=== PATIENT | female | born 1940 | race Caucasian/White ===

== ENCOUNTER → 2018-05-24 | Outpatient (CLI) | payer MEDICARE, BC ==
[~2018-05-24] MED LIST: ASPI81CH PO; HYDMOR2 PO; HYDR1TAB94; HYDR1TAB94 PO; Hydrocodone-Ap1 EA23; LOSA25; METTREX2.5; METTREX2.5 PO
== END | disposition home or self-care (01) ==
LOC: LAB 10:00 → LAB SHORT 10:00
DX: Z00.00 Encounter for general adult medical examination without abnormal findings (principal); E78.5 Hyperlipidemia, unspecified; L40.50 Arthropathic psoriasis, unspecified; M81.0 Age-related osteoporosis without current pathological fracture; D51.0 Vitamin B12 deficiency anemia due to intrinsic factor deficiency; I10 Essential (primary) hypertension
CPT/HCPCS: 82043

== ENCOUNTER → 2020-03-26 | Outpatient (CLI) | payer MEDICARE, BC ==
[2020-03-26 14:05] LABS: Protein, Urine Quantitative 5.7 mg/dL (0.0-11.9)
[2020-03-26 14:13] LABS: Microalbumin, Urine Quant. <5.000 mg/L (0.000-20.000)
== END ==
LOC: LAB SHORT 07:50
PROVIDERS: Internal Medicine Nephrology
DX: N18.30 Chronic kidney disease, stage 3 unspecified (principal); D63.1 Anemia in chronic kidney disease; D50.9 Iron deficiency anemia, unspecified; R73.09 Other abnormal glucose; R76.9 Abnormal immunological finding in serum, unspecified; R94.5 Abnormal results of liver function studies; R94.6 Abnormal results of thyroid function studies; D52.8 Other folate deficiency anemias
CPT/HCPCS: 81050; 82043; 82570; 84156

== ENCOUNTER → 2021-02-25 | Outpatient (CLI) | payer MEDICARE, BC ==
[~2021-02-25] MED LIST changes: -LOSA25; +LOSA25 PO; -METTREX2.5
[2021-02-25 12:18] LABS: BASOPHILS ABSOLUTE AUTO 0.01 K/mm3 (0.00-0.23); BASOPHILS PERCENT AUTO 0 % (0-2); EOSINOPHILS PERCENT AUTO 0 % (0-6); Hematocrit 36.9 % (33.0-51.0); Hemoglobin 12.4 g/dL (11.5-16.0); IMMATURE GRAN ABSOLUTE AUTO 0.03 K/mm3 (0.00-0.10); IMMATURE GRAN PERCENT AUTO 1 % (0-1); LYMPHOCYTES ABSOLUTE AUTO 1.01 K/mm3 (0.84-5.20); LYMPHOCYTES PERCENT AUTO 25 % (21-46); MONOCYTES ABSOLUTE AUTO 0.48 K/mm3 (0.16-1.47); MONOCYTES PERCENT AUTO 12 % (4-13); Mean Corpuscular HGB 33.6 pg (26.0-34.0); Mean Corpuscular HGB Conc 33.6 g/dL (31.5-36.5); Mean Corpuscular Volume 100 fL (80-100); NEUTROPHILS ABSOLUTE AUTO 2.44 K/mm3 (1.96-9.15); NEUTROPHILS PERCENT AUTO 61 % (41-73); Platelet Count 138 K/mm3 (150-400); RDW Coefficient Variation 12.9 % (11.7-14.2); Red Blood Cell Count 3.69 M/mm3 (3.80-5.20); White Blood Cell Count 3.97 K/mm3 (4.00-11.30)
[2021-02-25 12:55] LABS: Albumin/Globulin Ratio 0.9 (0.8-1.8); Bilirubin, Total 0.7 mg/dL (0.1-1.0); Bun/Creatinine Ratio 25.4 (12.0-20.0); C-REACTIVE PROTEIN, EXT RANGE 1.28 mg/dL (0.000-0.300); Calcium, Blood 8.6 mg/dL (8.5-10.1); Creatinine, Blood 1.22 mg/dL (0.40-1.00); Globulin, Blood 3.2 g/dL (2.2-4.0); Potassium, Blood 4.1 mmol/L (3.5-5.5); Total Protein, Blood 6.2 g/dL (6.4-8.2)
== END | disposition home or self-care (01) ==
LOC: LAB 11:35 → LAB SHORT 11:35
PROVIDERS: Physician Assistant
DX: R53.83 Other fatigue (principal)
CPT/HCPCS: 80053; 82550; 85025; 85651; 86140; 87077; 87086; 87186

== ENCOUNTER 2021-03-05 14:19 | Inpatient (IN) | payer MEDICARE, BC ==
[~2021-03-05] VITALS: Ht 162.6 cm; Wt 79.6 kg
[2021-03-05 15:06] LABS: BASOPHILS PERCENT AUTO 0 % (0-2); EOSINOPHILS ABSOLUTE AUTO 0.01 K/mm3 (0.00-0.68); EOSINOPHILS PERCENT AUTO 1 % (0-6); Hematocrit 29.9 % (33.0-51.0); Hemoglobin 9.9 g/dL (11.5-16.0); IMMATURE GRAN ABSOLUTE AUTO 0.01 K/mm3 (0.00-0.10); IMMATURE GRAN PERCENT AUTO 1 % (0-1); LYMPHOCYTES ABSOLUTE AUTO 0.35 K/mm3 (0.84-5.20); LYMPHOCYTES PERCENT AUTO 19 % (21-46); MONOCYTES ABSOLUTE AUTO 0.07 K/mm3 (0.16-1.47); MONOCYTES PERCENT AUTO 4 % (4-13); Mean Corpuscular HGB 33.7 pg (26.0-34.0); Mean Corpuscular HGB Conc 33.1 g/dL (31.5-36.5); Mean Corpuscular Volume 102 fL (80-100); NEUTROPHILS ABSOLUTE AUTO 1.37 K/mm3 (1.96-9.15); NEUTROPHILS PERCENT AUTO 76 % (41-73); RDW Coefficient Variation 13.2 % (11.7-14.2); RDW Standard Deviation 48.5 fL (35.1-46.3); Red Blood Cell Count 2.94 M/mm3 (3.80-5.20); White Blood Cell Count 1.81 K/mm3 (4.00-11.30)
[2021-03-05] MEDS ORDERED: FUROSEMIDE20 MG PO (15:13)
[2021-03-05] MEDS ORDERED: LOSARTAN POTASS25 M2 PO (15:13)
[2021-03-05] MEDS ORDERED: POTA8 PO (15:14)
[2021-03-05] MEDS ORDERED: CEFDINIR300 M4 PO (15:15)
[2021-03-05 15:18] LABS: Platelet Count 46 K/mm3 (150-400)
[2021-03-05 15:19] LABS: Source, Urine Catheter
[2021-03-05 15:20] LABS: Alanine Aminotransfer (ALT/SGP 124 U/L (12-78); Albumin, Blood 2.4 g/dL (3.4-5.0); Albumin/Globulin Ratio 0.9 (0.8-1.8); Alk Phos 50 U/L (50-136); Anion Gap 7 mmol/L (6-16); Aspartate Aminotrans (AST/SGOT 119 U/L (12-37); Bilirubin, Total 0.6 mg/dL (0.1-1.0); Blood Urea Nitrogen 17 mg/dL (8-24); Bun/Creatinine Ratio 13.6 (12.0-20.0); CO2, Blood 26 mmol/L (21-32); Calcium, Blood 7.2 mg/dL (8.5-10.1); Chloride, Blood 104 mmol/L (98-108); Creatinine, Blood 1.25 mg/dL (0.40-1.00); Ethanol (Alcohol), Blood, Med <3 mg/dL; Globulin, Blood 2.6 g/dL (2.2-4.0); Glomerular Filtration Rate 41 (60-); Glucose, Blood 102 mg/dL (70-99); Potassium, Blood 3.7 mmol/L (3.5-5.5); Sodium, Blood 137 mmol/L (136-145); Troponin I 0.035 ng/mL (0.000-0.040)
[2021-03-05 15:29] LABS: Appearance, Urine Clear (Clear); Bilirubin, Urine Neg (Neg); Blood, Urine 1+ (Neg); Color, Urine Yellow (P-Yellow); Glucose Qualitative, Urine Neg (Neg); Ketones, Urine Neg (Neg); Leukocyte Esterase, Urine Neg (Neg); Nitrite, Urine Neg (Neg); Protein, Urine 1+ (Neg); Specific Gravity, Urine 1.015 (1.003-1.022); Urobilinogen, Urine NORM (Normal)
[2021-03-05 15:46] LABS: U Amphetamine Screen Not Detected; U Barbituate Screen Not Detected; U Benzodiazapine Screen Not Detected; U Buprenorphine Screen Not Detected; U Cannabinoids Screen Not Detected; U Cocaine Screen Not Detected; U Methadone Screen Not Detected; U Methamphetamine Screen Not Detected; U Opiates Screen Not Detected; U Oxycodone Screen Not Detected; U Phencyclidine Screen Not Detected; U Propoxyphene Screen Not Detected
[2021-03-05 15:51] LABS: Bacteria Rare /hpf; Red Blood Cells, Urine 0-2 /hpf (0-2); Squamous Epithelial Cells Rare /hpf (Few); White Blood Cells, Urine 0-2 /hpf (0-5)
[2021-03-05 15:53] LABS: Influenza A, PCR NEGATIVE (NEGATIVE); Influenza B, PCR NEGATIVE (NEGATIVE); Resp Syncytial Virus, PCR NEGATIVE (NEGATIVE); SARS-Cov-2 (COVID-19) PCR, MMC POSITIVE (NEGATIVE)
--- NOTE | 2021-03-06 03:35 | NUR ---
ADMISSION: Pt's daughter was checking in and found the pt. with AMS that is not her baseline. The pt. was here 1 week ago d/t being found down at home. She is Covid + and has been febrile, but her temp has gone down since up on the floor. She has a quinonez with a temp probe and is resting comfortably in bed on RA. Her hx includes liver cancer w/ mets and it seems that her DNR status is possibly being changed to comfort care, but the order is not in yet. We will continue to monitor the remainder of the shift.
[2021-03-06 04:52] LABS: Hematocrit 28.6 % (33.0-51.0); Hemoglobin 9.6 g/dL (11.5-16.0); Mean Corpuscular HGB 34.2 pg (26.0-34.0); Mean Corpuscular HGB Conc 33.6 g/dL (31.5-36.5); Mean Corpuscular Volume 102 fL (80-100); Mean Platelet Volume 11.1 fL (9.1-12.4); RDW Coefficient Variation 13.2 % (11.7-14.2); RDW Standard Deviation 49.4 fL (35.1-46.3); Red Blood Cell Count 2.81 M/mm3 (3.80-5.20); White Blood Cell Count 1.78 K/mm3 (4.00-11.30)
[2021-03-06 05:21] LABS: Platelet Count 38 K/mm3 (150-400)
[2021-03-06 05:23] LABS: Albumin/Globulin Ratio 0.8 (0.8-1.8); Bilirubin, Total 0.5 mg/dL (0.1-1.0); Bun/Creatinine Ratio 13.3 (12.0-20.0); Calcium, Blood 7.1 mg/dL (8.5-10.1); Creatinine, Blood 1.2 mg/dL (0.40-1.00); Globulin, Blood 2.6 g/dL (2.2-4.0); Potassium, Blood 3.7 mmol/L (3.5-5.5); Total Protein, Blood 4.6 g/dL (6.4-8.2)
[2021-03-06 05:55] LABS: BASOPHILS PERCENT MAN 0 % (0-2); EOSINOPHILS PERCENT MAN 0 % (0-6); LYMPHOCYTES ABSOLUTE MAN 0.37 K/mm3 (0.84-5.20); LYMPHOCYTES PERCENT MAN 21 % (21-46); MONOCYTES ABSOLUTE MAN 0.07 K/mm3 (0.16-1.47); MONOCYTES PERCENT MAN 4 % (4-13); NEUTROPHILS ABSOLUTE MAN 1.33 K/mm3 (1.96-9.15); SEG NEUTROPHILS PERCENT MAN 75 % (41-73); TOTAL CELLS COUNTED 100
--- NOTE | 2021-03-06 06:37 | NUR ---
PT IS A/OX2-3. HX: LIVER CA W/ METS. HERE RECENTLY FOR WEAKNESS/GLF. CURRENTLY A DNR BUT WILL BE SHIFTING TO COMFORT CARE. SHE HAS BEEN FEBRILE SINCE HER ARRIVAL TO THE HOSPITAL. HER TEMP DID GO DOWN UP ON THE FLOOR, BUT SHE NOW HAS AN ELEVATED TEMP. SHE WAS MEDICATED WITH TYLENOL AND WE'LL DO A TEMP RECHECK BEFORE SHIFT CHANGE.
--- NOTE | 2021-03-06 17:31 | NUR ---
SHIFT SUMMARY PT IS AOX4 AND PLEASANT. PT MEDICATED X1 FOR PAIN. PT DENIES N/V, SOB AND REMAINS AFEBRILE THIS SHIFT. PT APPETITE IS POOR TO MODERATE, NEEDING FEEDING ASSISTANCE AT TIMES. PT UP WITH ONE ASSIST TO BCC, BUT WEAK. PT HAD FAMILY IN TO VISIT TODAY. PLAN IS FOR PT/OT EVALUATION AND REMDESIVIR TREATMENT FOR COVID. PT IS IN BED, CALL LIGHT IN REACH, LOW POSITION.
--- NOTE | 2021-03-07 04:54 | NUR ---
PT IS NOW A/OX4. HER AMS HAS RESOLVED. SHE IS NO LONGER FEBRILE. SHE IS TOLERATING SOLID FOOD AND IS DRINKING FLUIDS WELL. SHE IS VERY WEAK AND NEEDS 1-2 PA/FWW TO BSC WITH COMMANDS. COVID ISOLATION REMAINS IN PLACE.
[2021-03-07 05:08] LABS: Hematocrit 29.6 % (33.0-51.0); Hemoglobin 9.9 g/dL (11.5-16.0); Mean Corpuscular HGB 33.8 pg (26.0-34.0); Mean Corpuscular HGB Conc 33.4 g/dL (31.5-36.5); Mean Corpuscular Volume 101 fL (80-100); Mean Platelet Volume 11.5 fL (9.1-12.4); RDW Coefficient Variation 13.2 % (11.7-14.2); RDW Standard Deviation 48.5 fL (35.1-46.3); Red Blood Cell Count 2.93 M/mm3 (3.80-5.20); White Blood Cell Count 1.46 K/mm3 (4.00-11.30)
[2021-03-07 05:20] LABS: Platelet Count 27 K/mm3 (150-400)
[2021-03-07 05:33] LABS: Bun/Creatinine Ratio 22.1 (12.0-20.0); Calcium, Blood 7.2 mg/dL (8.5-10.1); Creatinine, Blood 0.91 mg/dL (0.40-1.00); Potassium, Blood 3.8 mmol/L (3.5-5.5)
[2021-03-07 05:59] LABS: BAND PERCENT MAN 8 % (0-8); BASOPHILS PERCENT MAN 0 % (0-2); EOSINOPHILS PERCENT MAN 0 % (0-6); LYMPHOCYTES ABSOLUTE MAN 0.23 K/mm3 (0.84-5.20); LYMPHOCYTES PERCENT MAN 16 % (21-46); MONOCYTES ABSOLUTE MAN 0.04 K/mm3 (0.16-1.47); MONOCYTES PERCENT MAN 3 % (4-13); MYELOCYTE ABSOLUTE MAN 0.01 K/mm3 (0.00-0.00); MYELOCYTE PERCENT MAN 1 % (0-0); NEUTROPHILS ABSOLUTE MAN 1.16 K/mm3 (1.96-9.15); SEG NEUTROPHILS PERCENT MAN 72 % (41-73); TOTAL CELLS COUNTED 100
--- NOTE | 2021-03-07 18:38 | NUR ---
SHIFT SUMMARY PATIENT DENIES PAIN, NAUSEA, AND SHORTNESS OF BREATH. PATIENT IS ON ROOM AIR. PATIENT WORKED WITH PT TODAY. PATIENT IS A SBA TO THE BATHROOM. CÁRDENAS IS PATENT AND DRAINING TO GRAVITY. PT IS RECOMMENDING SNF, HOWEVER PATIENT DOES NOT WANT THAT. PATIENT DAUGHTER VISITED IN AFTERNOON. PATIENT HAS POOR PO INTAKE. PATIENT REPORTS LACK OF APPETITE. PATIENT IS PLEASANT AND COOPERATIVE WITH CARE.
[2021-03-08 05:17] LABS: BASOPHILS PERCENT AUTO 0 % (0-2); EOSINOPHILS PERCENT AUTO 0 % (0-6); Hematocrit 30.7 % (33.0-51.0); Hemoglobin 10.3 g/dL (11.5-16.0); Mean Corpuscular HGB 33.4 pg (26.0-34.0); Mean Corpuscular HGB Conc 33.6 g/dL (31.5-36.5); Mean Corpuscular Volume 100 fL (80-100); RDW Coefficient Variation 13.3 % (11.7-14.2); RDW Standard Deviation 48.4 fL (35.1-46.3); Red Blood Cell Count 3.08 M/mm3 (3.80-5.20); White Blood Cell Count 2.66 K/mm3 (4.00-11.30)
--- NOTE | 2021-03-08 05:25 | NUR ---
SHIFT SUMMARY 80 YR f ADMITTED ON 03/05/21 FOR SEPSIS AND IS NOW COVID POSITIVE AND RA . SHE IS A DNR. PT IS COMPLAINING OF PAIN AT A LEVEL OF 8-9 IN HER HIPS AFTER A GROUND LEVEL FALL 12 DAYS AGO. tYLENOL WAS VALLES TWICE DURING SHIFT PER EMAR. STAND BY ASSIST TO BEDSIDE COMMODE OR BATHROOM, AND USES A WALKER. SHE PLANS TO MOVE IN WITH HER GRANDDAUGHTER UPON DISCHARGE.
[2021-03-08 05:43] LABS: IMMATURE GRAN ABSOLUTE AUTO 0.01 K/mm3 (0.00-0.10); IMMATURE GRAN PERCENT AUTO 0 % (0-1); LYMPHOCYTES ABSOLUTE AUTO 0.43 K/mm3 (0.84-5.20); LYMPHOCYTES PERCENT AUTO 16 % (21-46); MONOCYTES ABSOLUTE AUTO 0.03 K/mm3 (0.16-1.47); MONOCYTES PERCENT AUTO 1 % (4-13); NEUTROPHILS ABSOLUTE AUTO 2.19 K/mm3 (1.96-9.15); NEUTROPHILS PERCENT AUTO 82 % (41-73)
[2021-03-08 05:44] LABS: Platelet Count 36 K/mm3 (150-400)
[2021-03-08 05:55] LABS: Bun/Creatinine Ratio 28.8 (12.0-20.0); Calcium, Blood 7.7 mg/dL (8.5-10.1); Creatinine, Blood 0.94 mg/dL (0.40-1.00); Potassium, Blood 4.2 mmol/L (3.5-5.5)
--- NOTE | 2021-03-08 19:15 | NUR ---
PT A/O. NO ACUTE CHANGES FOR SHIFT. PT WALKED WITH PT TODAY. NO ACUTE CHANGES. ALL MEDS GIVEN PER EMAR. PT IS GOING HOME WITH HOME HEALTH TOMORROW PER DR YARBROUGH
--- NOTE | 2021-03-09 04:05 | NUR ---
SHIFT SUMMARY ADMITTED FOR PNEUMONIA/SEPSIS. COVID+. DNR CODE. HOPEFUL FOR DC TODAY W/HH. SHE PLANS TO LIVE WITH HER DAUGHTER. REMDESIVIR IS SCHEDULED. PHYSICAL & OCCUPATIONAL THERAPIES ARE ASSISTING WITH THIS PT. SHE IS A 1 ASSIST W/FWW - BRP. NO NEW CONCERNS THIS SHIFT
[2021-03-09 05:39] LABS: BASOPHILS PERCENT AUTO 0 % (0-2); EOSINOPHILS PERCENT AUTO 0 % (0-6); Hematocrit 30.1 % (33.0-51.0); Hemoglobin 9.6 g/dL (11.5-16.0); Mean Corpuscular HGB Conc 31.9 g/dL (31.5-36.5); Mean Corpuscular Volume 103 fL (80-100); RDW Coefficient Variation 13.5 % (11.7-14.2); RDW Standard Deviation 50.1 fL (35.1-46.3); Red Blood Cell Count 2.91 M/mm3 (3.80-5.20); White Blood Cell Count 1.77 K/mm3 (4.00-11.30)
[2021-03-09 05:56] LABS: IMMATURE GRAN ABSOLUTE AUTO 0.01 K/mm3 (0.00-0.10); IMMATURE GRAN PERCENT AUTO 1 % (0-1); LYMPHOCYTES ABSOLUTE AUTO 0.27 K/mm3 (0.84-5.20); LYMPHOCYTES PERCENT AUTO 15 % (21-46); MONOCYTES ABSOLUTE AUTO 0.03 K/mm3 (0.16-1.47); MONOCYTES PERCENT AUTO 2 % (4-13); NEUTROPHILS ABSOLUTE AUTO 1.46 K/mm3 (1.96-9.15); NEUTROPHILS PERCENT AUTO 82 % (41-73); Platelet Count 40 K/mm3 (150-400)
[2021-03-09 06:30] LABS: Bun/Creatinine Ratio 31.5 (12.0-20.0); Calcium, Blood 7.8 mg/dL (8.5-10.1); Creatinine, Blood 0.95 mg/dL (0.40-1.00); Potassium, Blood 4.2 mmol/L (3.5-5.5)
[2021-03-09 06:57] LABS: BAND PERCENT MAN 2 % (0-8); BASOPHILS PERCENT MAN 0 % (0-2); EOSINOPHILS PERCENT MAN 0 % (0-6); LYMPHOCYTES PERCENT MAN 6 % (21-46); MONOCYTES PERCENT MAN 0 % (4-13); NEUTROPHILS ABSOLUTE MAN 1.66 K/mm3 (1.96-9.15); SEG NEUTROPHILS PERCENT MAN 92 % (41-73); TOTAL CELLS COUNTED 50
--- NOTE | 2021-03-09 14:34 | NUR ---
PATIENT RECEIVED LAST DOSE OF REMDESEVIR FOR SHIFT.VITALS STABLE.PT DENIES PAIN/DISCOMFORT.NO ACUTE CHANGES.NO SIGNS OF DISTRESS.PT AMBULATES WELL TO THE BATHROOM WITH STAFF ASSISTANCE AND WITH WALKER. ALL MEDS GIVEN PER EMAR.DAUGHTER AT BEDSIDE. PATIENT HAS BEEN DISCHARGED AROUND 1410.IV REMOVED.DISCHARGE INSTRUSTIONS PROVIDED. MED ORDER/PHARMACY REVIEWED.
--- NOTE | 2021-03-10 11:36 | NUR ---
Patient is a [facility] patient who was transferred to [facility] on 03/05/2021 due to sepsis. Patient is to discharged yesterday- 03/09/2021 with resumption of home health orders. Gathered supporting documentation for resumption (face sheet, discharge order, med list, and H&P) and faxed to [facility] for review. No further interventions required. Marry Sales Referral Liaison
== END 2021-03-09 14:14 | disposition home health service (06) | DRG 871 ==
LOC: ER 14:19 → MEDS 17:34
PROVIDERS: Emergency Medicine; Family Medicine; Student in an Organized Health Care Education/Training Program; ADMIT Internal Medicine
PROC: 3E0333Z Introduction of Anti-inflammatory into Peripheral Vein, Percutaneous Approach (ICD-10-PCS; principal; 2021-03-05)
PROC: XW033E5 Introduction of Remdesivir Anti-infective into Peripheral Vein, Percutaneous Approach, New Technology Group 5 (ICD-10-PCS; 2021-03-05)
PROC: 8E0ZXY6 Isolation (ICD-10-PCS; 2021-03-05)
DX: A41.89 Other specified sepsis (principal); U07.1 COVID-19; J12.82 Pneumonia due to coronavirus disease 2019; D61.810 Antineoplastic chemotherapy induced pancytopenia; G93.41 Metabolic encephalopathy; N18.30 Chronic kidney disease, stage 3 unspecified; Z66 Do not resuscitate; I12.9 Hypertensive chronic kidney disease with stage 1 through stage 4 chronic kidney disease, or unspecified chronic kidney disease; L40.50 Arthropathic psoriasis, unspecified; T45.1X5A Adverse effect of antineoplastic and immunosuppressive drugs, initial encounter; T38.0X5A Adverse effect of glucocorticoids and synthetic analogues, initial encounter; M16.0 Bilateral primary osteoarthritis of hip; M06.9 Rheumatoid arthritis, unspecified; Z90.49 Acquired absence of other specified parts of digestive tract; Z98.890 Other specified postprocedural states; Z98.1 Arthrodesis status; Z98.42 Cataract extraction status, left eye; Z98.41 Cataract extraction status, right eye; Z79.899 Other long term (current) drug therapy; Z91.81 History of falling
CPT/HCPCS: 0241U; 36415; 51702; 70450; 71045; 80048; 80053; 81001; 83605; 84484; 85025; 87040; 93005; 93010; 94762; 96374; 97110; 97116; 97116-CQ; 97162; 97166; 97530; 97530-CQ; 97535; 99285-25; A9270; G0480; J1650; J7030; J7050; J8610

== ENCOUNTER 2021-03-11 11:25 | Inpatient (IN) | payer MEDICARE, BC ==
[~2021-03-11] VITALS: Ht 162.6 cm; Wt 72.6 kg
[~2021-03-11 11:25] MED LIST changes: +CEFDINIR300 M4 PO; +FUROSEMIDE20 MG PO; +LOSARTAN POTASS25 M2 PO; +POTA8 PO
[2021-03-11 14:17] LABS: Source, Urine Catheter
[2021-03-11 14:23] LABS: BASOPHILS PERCENT AUTO 0 % (0-2); EOSINOPHILS ABSOLUTE AUTO 0.02 K/mm3 (0.00-0.68); EOSINOPHILS PERCENT AUTO 1 % (0-6); Hematocrit 30.3 % (33.0-51.0); Hemoglobin 9.8 g/dL (11.5-16.0); IMMATURE GRAN ABSOLUTE AUTO 0.01 K/mm3 (0.00-0.10); IMMATURE GRAN PERCENT AUTO 1 % (0-1); LYMPHOCYTES ABSOLUTE AUTO 0.39 K/mm3 (0.84-5.20); LYMPHOCYTES PERCENT AUTO 22 % (21-46); MONOCYTES PERCENT AUTO 11 % (4-13); Mean Corpuscular HGB 33.9 pg (26.0-34.0); Mean Corpuscular HGB Conc 32.3 g/dL (31.5-36.5); Mean Corpuscular Volume 105 fL (80-100); Mean Platelet Volume 11.4 fL (9.1-12.4); NEUTROPHILS ABSOLUTE AUTO 1.14 K/mm3 (1.96-9.15); NEUTROPHILS PERCENT AUTO 65 % (41-73); RDW Coefficient Variation 13.7 % (11.7-14.2); RDW Standard Deviation 51.8 fL (35.1-46.3); Red Blood Cell Count 2.89 M/mm3 (3.80-5.20); White Blood Cell Count 1.76 K/mm3 (4.00-11.30)
[2021-03-11 14:24] LABS: Appearance, Urine Hazy (Clear); Bilirubin, Urine Neg (Neg); Blood, Urine 2+ (Neg); Color, Urine Yellow (P-Yellow); Glucose Qualitative, Urine Neg (Neg); Ketones, Urine Neg (Neg); Leukocyte Esterase, Urine 2+ (Neg); Nitrite, Urine Pos (Neg); Protein, Urine 2+ (Neg); Urobilinogen, Urine NORM (Normal)
[2021-03-11 14:33] LABS: Platelet Count 42 K/mm3 (150-400)
[2021-03-11 14:41] LABS: Bacteria Many /hpf; Squamous Epithelial Cells Rare /hpf (Few); White Blood Cells, Urine 25-50 /hpf (0-5)
[2021-03-11 14:45] LABS: Albumin, Blood 1.9 g/dL (3.4-5.0); Albumin/Globulin Ratio 0.7 (0.8-1.8); Bilirubin, Total 1.2 mg/dL (0.1-1.0); Calcium, Blood 8.3 mg/dL (8.5-10.1); Globulin, Blood 2.7 g/dL (2.2-4.0); Potassium, Blood 4.3 mmol/L (3.5-5.5); Total Protein, Blood 4.6 g/dL (6.4-8.2)
[2021-03-12 05:38] LABS: BASOPHILS PERCENT AUTO 0 % (0-2); EOSINOPHILS ABSOLUTE AUTO 0.06 K/mm3 (0.00-0.68); EOSINOPHILS PERCENT AUTO 5 % (0-6); Hematocrit 29.8 % (33.0-51.0); Hemoglobin 9.5 g/dL (11.5-16.0); IMMATURE GRAN ABSOLUTE AUTO 0.01 K/mm3 (0.00-0.10); IMMATURE GRAN PERCENT AUTO 1 % (0-1); LYMPHOCYTES ABSOLUTE AUTO 0.34 K/mm3 (0.84-5.20); LYMPHOCYTES PERCENT AUTO 30 % (21-46); MONOCYTES ABSOLUTE AUTO 0.28 K/mm3 (0.16-1.47); MONOCYTES PERCENT AUTO 24 % (4-13); Mean Corpuscular HGB 33.9 pg (26.0-34.0); Mean Corpuscular HGB Conc 31.9 g/dL (31.5-36.5); Mean Corpuscular Volume 106 fL (80-100); Mean Platelet Volume 10.2 fL (9.1-12.4); NEUTROPHILS ABSOLUTE AUTO 0.46 K/mm3 (1.96-9.15); NEUTROPHILS PERCENT AUTO 40 % (41-73); RDW Standard Deviation 52.9 fL (35.1-46.3); White Blood Cell Count 1.15 K/mm3 (4.00-11.30)
--- NOTE | 2021-03-12 05:41 | NUR ---
PATIENT WAS ALERT AND ORIENTED X3, STABLE VITAL SIGNS, NO ACUTE CHANGES. PATIENT COMPLAINED OF PAIN AND WAS TREATED FOR IT. CÁRDENAS IS PATENT. PATIENT SLEPT FOR MOST OF THE NIGHT. CALL LIGHT WITH IN REACH, BED DOWN TO THE LOWEST POSITION. WILL CONTINUE TO MONITOT UNTILL HAND OFF.
[2021-03-12 05:48] LABS: Platelet Count 41 K/mm3 (150-400)
[2021-03-12 06:38] LABS: Bun/Creatinine Ratio 22.1 (12.0-20.0); Calcium, Blood 7.9 mg/dL (8.5-10.1); Creatinine, Blood 1.04 mg/dL (0.40-1.00); Magnesium, Blood 2.1 mg/dL (1.6-2.4); Potassium, Blood 4.5 mmol/L (3.5-5.5)
--- NOTE | 2021-03-13 04:20 | NUR ---
CUTTER APPRENTICE HAND SUMMARY PATIENT HAD A FAIR SHIFT SHIFT. HER TEMPERATURE LYNDA UP TO 102.1, PATIENT TOPS WAS CHANGED TO A FORESTRY CONSERVATION WORKER GOWN,BLANKET WERE REDUCED TO A TOP SHEET. GOT ORDER RECTAL TYLENOL AND A STAT BLOOD CULTURE. SHE TILL COUGH ON AND OFF. THE TEMP REDUCED TO 101.3 ON RECHECK, WILL CONTINUE TO MONITOR HER.
[2021-03-13 05:14] LABS: Hematocrit 28.3 % (33.0-51.0); Hemoglobin 9.2 g/dL (11.5-16.0); Mean Corpuscular HGB 33.3 pg (26.0-34.0); Mean Corpuscular HGB Conc 32.5 g/dL (31.5-36.5); Mean Corpuscular Volume 103 fL (80-100); RDW Coefficient Variation 14.1 % (11.7-14.2); RDW Standard Deviation 51.5 fL (35.1-46.3); Red Blood Cell Count 2.76 M/mm3 (3.80-5.20)
[2021-03-13 05:20] LABS: Platelet Count 50 K/mm3 (150-400)
[2021-03-13 05:48] LABS: BAND PERCENT MAN 2 % (0-8); BASOPHILS ABSOLUTE MAN 0.02 K/mm3 (0.00-0.23); BASOPHILS PERCENT MAN 1 % (0-2); EOSINOPHILS ABSOLUTE MAN 0.02 K/mm3 (0.00-0.68); EOSINOPHILS PERCENT MAN 1 % (0-6); LYMPHOCYTES % ATYPICAL MANUAL 2 % (0-0); LYMPHOCYTES ABSOLUTE MAN 0.48 K/mm3 (0.84-5.20); LYMPHOCYTES PERCENT MAN 21 % (21-46); MONOCYTES ABSOLUTE MAN 0.35 K/mm3 (0.16-1.47); MONOCYTES PERCENT MAN 17 % (4-13); NEUTROPHILS ABSOLUTE MAN 1.21 K/mm3 (1.96-9.15); SEG NEUTROPHILS PERCENT MAN 56 % (41-73); TOTAL CELLS COUNTED 100
[2021-03-13 06:00] LABS: Albumin, Blood 1.5 g/dL (3.4-5.0); Albumin/Globulin Ratio 0.7 (0.8-1.8); Bun/Creatinine Ratio 18.6 (12.0-20.0); Calcium, Blood 7.4 mg/dL (8.5-10.1); Creatinine, Blood 1.02 mg/dL (0.40-1.00); Globulin, Blood 2.3 g/dL (2.2-4.0); Potassium, Blood 4.2 mmol/L (3.5-5.5); Total Protein, Blood 3.8 g/dL (6.4-8.2)
--- NOTE | 2021-03-13 18:09 | NUR ---
PT AAOX2, ABLE TO STATE SOME NEEDS. COMPLIANT WITH MEDIAVTION REGIMEN. ELEVATED TEMP, MEDICATED SO PER ORDER, EFFECTIVE OUTCOMES. PT'S DAUGHTER VISITED WANTS MD TO CALL WITH UPDATE ON MOTHER AFTER ROUNDING IN THE A.M. PT'S LEORAE IS AWARE TAT PT'S HAS PENDING LABS. MEDICATED PT FOR PAIN WITH EFFECTIVE OUTCOME. CALL LIGHT IN REACH. BED IN LOWEST POSITION.POOR APPETITE NOTED. ENCOURAGE FLIUDS TOLERATED. REMAINS ON DROPLET PRECAUTIONS PER COVID 19.
--- NOTE | 2021-03-14 03:26 | NUR ---
SHIFT SUMMARY PATIENT HAD NO ACUTE CHANGES OBSERVED. AXOX 1-2 AND BEDREST. TAKES MEDICATION WHOLE WITH APPLE SAUCE X ONE EACH. PIV REMAINS INTACT. IV ABX INFUSED. CÁRDENAS PATENT AND DRAINING TO GRAVITY. VSS/LOW GRADE TEMP. ON ROOM AIR. DROPLET PRECAUTIONS FOR C-19+. SLEPT MOST OF THE SHIFT. DENIES PAIN, SOB, AND N/V. CALL LIGHT IN REACH. BED IN LOWEST POSITION. WILL CONTINUE TO MONITOR UNTIL DAY SHIFT NURSE ASSUMES CARE.
[2021-03-14 05:36] LABS: Hematocrit 36.1 % (33.0-51.0); Hemoglobin 11.5 g/dL (11.5-16.0); Mean Corpuscular HGB Conc 31.9 g/dL (31.5-36.5); Mean Corpuscular Volume 104 fL (80-100); Mean Platelet Volume 12.2 fL (9.1-12.4); Platelet Count 78 K/mm3 (150-400); RDW Coefficient Variation 13.9 % (11.7-14.2); RDW Standard Deviation 51.6 fL (35.1-46.3); Red Blood Cell Count 3.48 M/mm3 (3.80-5.20)
[2021-03-14 06:05] LABS: Albumin, Blood 1.6 g/dL (3.4-5.0); Albumin/Globulin Ratio 0.6 (0.8-1.8); Bilirubin, Total 1.1 mg/dL (0.1-1.0); Bun/Creatinine Ratio 18.4 (12.0-20.0); Calcium, Blood 7.7 mg/dL (8.5-10.1); Creatinine, Blood 1.03 mg/dL (0.40-1.00); Globulin, Blood 2.9 g/dL (2.2-4.0); Phosphorus, Blood 2.4 mg/dL (2.5-4.9); Potassium, Blood 4.9 mmol/L (3.5-5.5); Total Protein, Blood 4.5 g/dL (6.4-8.2)
[2021-03-14 06:17] LABS: BAND PERCENT MAN 5 % (0-8); BASOPHILS PERCENT MAN 0 % (0-2); EOSINOPHILS PERCENT MAN 0 % (0-6); LYMPHOCYTES ABSOLUTE MAN 0.51 K/mm3 (0.84-5.20); LYMPHOCYTES PERCENT MAN 8 % (21-46); MONOCYTES ABSOLUTE MAN 0.89 K/mm3 (0.16-1.47); MONOCYTES PERCENT MAN 14 % (4-13); NEUTROPHILS ABSOLUTE MAN 4.99 K/mm3 (1.96-9.15); SEG NEUTROPHILS PERCENT MAN 73 % (41-73); TOTAL CELLS COUNTED 100
--- NOTE | 2021-03-14 16:14 | NUR ---
SHIFT SUMMARY PT SOMNOLENT, BEDREST/WAKES WITH PAIN STIMULI/REPOSITIONING, BLE ELEVATED/HEELS FLOATED, VSS/RA/AFEBRILE. SPEECH THERAPY EVAL'D AND KEPT PT NPO/NO ORAL MEDS/SUCTION/ORAL CARE. IV RFA INFUSING D5LR @ 50 MLS/HR/ROCEPHIN PER EMAR. CÁRDENAS PATENT & DRAINING ORANG URINE, STAT LOCK ON, OFF FLOOR. DAUGHTER AT BEDSIDE. DR WAS CALLED SO SHE WOULD COME BY AND MEET WITH DAUGHTER TO DISCUSS PLAN OF CARE. WILL REPORT TO ONCOMING NOC RN.
--- NOTE | 2021-03-15 06:09 | NUR ---
SLEPT WELL BETWEEN TURNS AND BRIEF CHANGES. INCONTINENT OF TWO MED SOFT STOOLS. VERY PAINFUL WITH EACH POSITION CHANGE. MRS CHRISTINE DID ACCEPT A TYLENOL SUPPOSITORY IN THE MIDDLE OF THE NIGHT WHICH DID SEEM TO MAKE IT EASIER TO GET BACK TO SLEEP.
[2021-03-15 06:14] LABS: BASOPHILS ABSOLUTE AUTO 0.02 K/mm3 (0.00-0.23); BASOPHILS PERCENT AUTO 0 % (0-2); EOSINOPHILS ABSOLUTE AUTO 0.06 K/mm3 (0.00-0.68); EOSINOPHILS PERCENT AUTO 1 % (0-6); Hematocrit 34.2 % (33.0-51.0); Hemoglobin 11.1 g/dL (11.5-16.0); IMMATURE GRAN ABSOLUTE AUTO 0.11 K/mm3 (0.00-0.10); IMMATURE GRAN PERCENT AUTO 2 % (0-1); LYMPHOCYTES ABSOLUTE AUTO 0.61 K/mm3 (0.84-5.20); LYMPHOCYTES PERCENT AUTO 13 % (21-46); MONOCYTES ABSOLUTE AUTO 0.69 K/mm3 (0.16-1.47); MONOCYTES PERCENT AUTO 15 % (4-13); Mean Corpuscular HGB 33.3 pg (26.0-34.0); Mean Corpuscular HGB Conc 32.5 g/dL (31.5-36.5); Mean Corpuscular Volume 103 fL (80-100); NEUTROPHILS ABSOLUTE AUTO 3.09 K/mm3 (1.96-9.15); NEUTROPHILS PERCENT AUTO 68 % (41-73); NRBC ABSOLUTE 0.02 K/mm3 (0.00-0.02); NRBC Auto 0.4 /100 WBC (0.0-0.2); RDW Standard Deviation 50.9 fL (35.1-46.3); Red Blood Cell Count 3.33 M/mm3 (3.80-5.20); White Blood Cell Count 4.58 K/mm3 (4.00-11.30)
[2021-03-15 06:17] LABS: Mean Platelet Volume 12.6 fL (9.1-12.4)
[2021-03-15 06:25] LABS: Platelet Count 78 K/mm3 (150-400)
[2021-03-15 06:53] LABS: Albumin, Blood 1.3 g/dL (3.4-5.0); Albumin/Globulin Ratio 0.5 (0.8-1.8); Bilirubin, Total 0.7 mg/dL (0.1-1.0); Bun/Creatinine Ratio 22.1 (12.0-20.0); Calcium, Blood 6.9 mg/dL (8.5-10.1); Globulin, Blood 2.6 g/dL (2.2-4.0); Potassium, Blood 4.7 mmol/L (3.5-5.5); Total Protein, Blood 3.9 g/dL (6.4-8.2)
--- NOTE | 2021-03-15 19:28 | NUR ---
PT COMPLAINTS OF BACK PAIN. GAVE TYLENOL SUPP PER EMAR. DAUGHTER INQUIRED ABOUT FOOD FOR THIS PATIENT. INFORMED THAT PT FAIL SWALLOW TEST. PROVIDER STATES TOMORROW PT WILL BE RE-EVALUATED AND FROM THERE THEY ARE GOING TO MAKE A DECISION. VSS. NO OTHER COMPLAINTS OTHER THAN BACK PAIN. REPORT GIBEN TO MOVE COORDINATOR NURSE
--- NOTE | 2021-03-16 04:40 | NUR ---
SIX PACK LOADER OPERATOR SUMMARY PATIENT HAD A FAIR SHIFT. HER VITALS WERE STABLE. SHE STATED SHE WAS IN PAIN AND WAS GIVEN THE PRN PAIN MED. WILL CONTINUE TO MONITOR HER. SHE WAS ALSO KEPT COMFORTABLE.
[2021-03-16 05:19] LABS: BASOPHILS ABSOLUTE AUTO 0.01 K/mm3 (0.00-0.23); BASOPHILS PERCENT AUTO 0 % (0-2); EOSINOPHILS ABSOLUTE AUTO 0.01 K/mm3 (0.00-0.68); EOSINOPHILS PERCENT AUTO 0 % (0-6); Hematocrit 32.4 % (33.0-51.0); Hemoglobin 10.4 g/dL (11.5-16.0); LYMPHOCYTES ABSOLUTE AUTO 0.32 K/mm3 (0.84-5.20); LYMPHOCYTES PERCENT AUTO 13 % (21-46); MONOCYTES ABSOLUTE AUTO 0.46 K/mm3 (0.16-1.47); MONOCYTES PERCENT AUTO 19 % (4-13); Mean Corpuscular HGB 32.6 pg (26.0-34.0); Mean Corpuscular HGB Conc 32.1 g/dL (31.5-36.5); Mean Corpuscular Volume 102 fL (80-100); Mean Platelet Volume 11.5 fL (9.1-12.4); NEUTROPHILS ABSOLUTE AUTO 1.47 K/mm3 (1.96-9.15); NEUTROPHILS PERCENT AUTO 62 % (41-73); Platelet Count 107 K/mm3 (150-400); RDW Coefficient Variation 13.9 % (11.7-14.2); RDW Standard Deviation 50.5 fL (35.1-46.3); Red Blood Cell Count 3.19 M/mm3 (3.80-5.20); White Blood Cell Count 2.39 K/mm3 (4.00-11.30)
[2021-03-16 05:20] LABS: IMMATURE GRAN ABSOLUTE AUTO 0.12 K/mm3 (0.00-0.10); IMMATURE GRAN PERCENT AUTO 5 % (0-1)
[2021-03-16 05:52] LABS: Bun/Creatinine Ratio 24.9 (12.0-20.0); Calcium, Blood 6.9 mg/dL (8.5-10.1); Creatinine, Blood 0.96 mg/dL (0.40-1.00); Potassium, Blood 4.1 mmol/L (3.5-5.5)
--- NOTE | 2021-03-16 19:30 | NUR ---
PT C/O PAIN. TREATED PAIN PER EMAR. ALL MEDS GIVEN PER EMAR. NO SIGNS OF DISTRESS. NO ACUTE CHANGES. CÁRDENAS CARE PROVIDED. REPORT GIVEN TO ADDICTION COUNSELOR NURSE
--- NOTE | 2021-03-17 03:17 | NUR ---
LABORER SALVAGE SUMMARY PATIENT HAD A FAIR SHIFT. WITH STABLE V/S. SHE STATED SHE WAS IN PAIN AND MOANING. SHE WAS REPOSITIONED, CLEANED AND ALSO GIVEN TYLENOL. THAT DID NOT SEEM TO HELP. SHE WAS GIVEN FENTANYL AND SHE WAS ABLE TO SLEEP BETTER. WILL CONTINUE TO MONITOR HER.
[2021-03-17 05:59] LABS: Anion Gap 4 mmol/L (6-16); Blood Urea Nitrogen 21 mg/dL (8-24); Bun/Creatinine Ratio 23.6 (12.0-20.0); CO2, Blood 24 mmol/L (21-32); Chloride, Blood 113 mmol/L (98-108); Creatinine, Blood 0.89 mg/dL (0.40-1.00); Glomerular Filtration Rate >60 (60-); Glucose, Blood 106 mg/dL (70-99); Sodium, Blood 141 mmol/L (136-145)
--- NOTE | 2021-03-17 10:20 | NUR ---
PT REFUSED BLOOD DRAW THIS MORNING. DR MCNALLY NOTIFIED. NO ORDER RECEIVED. WILL CONTINUE TO MONITER PATIENT
[2021-03-17 12:51] LABS: Hematocrit 37.2 % (33.0-51.0); Hemoglobin 12.1 g/dL (11.5-16.0); Mean Corpuscular HGB 32.6 pg (26.0-34.0); Mean Corpuscular HGB Conc 32.5 g/dL (31.5-36.5); Mean Corpuscular Volume 100 fL (80-100); Mean Platelet Volume 11.7 fL (9.1-12.4); Platelet Count 152 K/mm3 (150-400); RDW Coefficient Variation 14.2 % (11.7-14.2); RDW Standard Deviation 50.2 fL (35.1-46.3); Red Blood Cell Count 3.71 M/mm3 (3.80-5.20); White Blood Cell Count 3.11 K/mm3 (4.00-11.30)
[2021-03-17 14:12] LABS: BAND PERCENT MAN 3 % (0-8); BASOPHILS ABSOLUTE MAN 0.03 K/mm3 (0.00-0.23); BASOPHILS PERCENT MAN 1 % (0-2); EOSINOPHILS ABSOLUTE MAN 0.03 K/mm3 (0.00-0.68); EOSINOPHILS PERCENT MAN 1 % (0-6); LYMPHOCYTES ABSOLUTE MAN 0.62 K/mm3 (0.84-5.20); LYMPHOCYTES PERCENT MAN 20 % (21-46); METAMYELOCYTE ABSOLUTE MAN 0.12 K/mm3 (0.00-0.00); METAMYELOCYTE PERCENT MAN 4 % (0-0); MONOCYTES ABSOLUTE MAN 0.37 K/mm3 (0.16-1.47); MONOCYTES PERCENT MAN 12 % (4-13); NEUTROPHILS ABSOLUTE MAN 1.89 K/mm3 (1.96-9.15); SEG NEUTROPHILS PERCENT MAN 58 % (41-73); TOTAL CELLS COUNTED 100
[2021-03-17 14:18] LABS: OTHER CELL PERCENT MAN 1 % (0-0)
--- NOTE | 2021-03-17 17:30 | NUR ---
PT A/O. NO PAIN REPORTED FOR SHIFT. ST EVALUATED PT TODAY- PT IS NO LONGER NPO. NO ACUTE CHANGES. DAUGHTER AT BEDSIDE INQUIRING ABOUT PT NEW DIET. EXPLAINED TO DAUGHTER THAT ST EVALUATED PT TODAY, PT DID GOOD AND WAS TRANSITIONED TO PUREE DIET TEXTURE/ NECTAR THICK LIQUID WITH NO STRAW. PATIENT AND DAUGHTER VERBALIZED UNDERSTANDING. CALL LIGHT WITHIN REACH, BED LOWEST POSITION. Q2 TURN, ORAL CARE PROVIDED.WILL CONTINUE TO MONITOR
--- NOTE | 2021-03-18 04:17 | NUR ---
SHIFT SUMMARY PATIENT HAD NO ACUTE CHANGES OBSERVED. AXO X 1-2 AND BEDREST. DENIES PAIN, SOB, AND N/V. PIV REMAINS INTACT. CÁRDENAS PATENT AND DRAINING TO GRAVITY. VSS/AFEBRILE. CALL LIGHT IN REACH. BED IN LOWEST POSITION. WILL CONTINUE TO MONITOR UNTIL DAY SHIFT NURSE ASSUMES CARE.
--- NOTE | 2021-03-18 05:13 | NUR ---
PATIENT REFUSED LABS PER DRYWALL APPLICATION SUPERVISOR. TECH REPORTS WILL TRY LATER.
[2021-03-18 10:08] LABS: Hematocrit 37.8 % (33.0-51.0); Mean Corpuscular HGB 32.6 pg (26.0-34.0); Mean Corpuscular HGB Conc 31.7 g/dL (31.5-36.5); Mean Corpuscular Volume 103 fL (80-100); Mean Platelet Volume 11.6 fL (9.1-12.4); Platelet Count 211 K/mm3 (150-400); RDW Coefficient Variation 14.4 % (11.7-14.2); RDW Standard Deviation 52.7 fL (35.1-46.3); Red Blood Cell Count 3.68 M/mm3 (3.80-5.20); White Blood Cell Count 3.72 K/mm3 (4.00-11.30)
[2021-03-18 10:31] LABS: Bun/Creatinine Ratio 20.2 (12.0-20.0); Calcium, Blood 7.4 mg/dL (8.5-10.1); Creatinine, Blood 1.14 mg/dL (0.40-1.00); Potassium, Blood 3.7 mmol/L (3.5-5.5)
[2021-03-18 10:38] LABS: BAND PERCENT MAN 4 % (0-8); BASOPHILS ABSOLUTE MAN 0.03 K/mm3 (0.00-0.23); BASOPHILS PERCENT MAN 1 % (0-2); EOSINOPHILS ABSOLUTE MAN 0.03 K/mm3 (0.00-0.68); EOSINOPHILS PERCENT MAN 1 % (0-6); LYMPHOCYTES ABSOLUTE MAN 0.55 K/mm3 (0.84-5.20); LYMPHOCYTES PERCENT MAN 15 % (21-46); METAMYELOCYTE ABSOLUTE MAN 0.07 K/mm3 (0.00-0.00); METAMYELOCYTE PERCENT MAN 2 % (0-0); MONOCYTES ABSOLUTE MAN 0.48 K/mm3 (0.16-1.47); MONOCYTES PERCENT MAN 13 % (4-13); MYELOCYTE ABSOLUTE MAN 0.07 K/mm3 (0.00-0.00); MYELOCYTE PERCENT MAN 2 % (0-0); NEUTROPHILS ABSOLUTE MAN 2.38 K/mm3 (1.96-9.15); OTHER CELL PERCENT MAN 1 % (0-0); PLASMA CELL ABSOLUTE MAN 0.03 K/mm3 (0.00-0.00); PLASMA CELLS PERCENT MAN 1 % (0-0); SEG NEUTROPHILS PERCENT MAN 60 % (41-73); TOTAL CELLS COUNTED 100
--- NOTE | 2021-03-18 20:06 | NUR ---
PT COMPLAINTS OF PAIN AFTER TRANSFER BACK FROM CHAIR TO BED. PAIN TREATED WITH PRN MEDS PER EMAR. NO ACUTE CHANGES NOTED. POSSIBLE DISCHARGE TOMORROW TO [facility]. REPORT GIVEN TO OPERATIONAL INTELLIGENCE ANALYST NURSE
--- NOTE | 2021-03-19 07:15 | NUR ---
SHIFT SUMMARY ASSUMED CARE AT 1900. PT REMAINS IN ENHANCED DROPLET ISOLATION. PT C/O CHRONIC RIGHT SHOULDER PAIN, MEDICATED WITH PRN NORCO TWICE DURING SHIFT. REMAINS IN ROOM AIR, NO COUGHING NOTED. IV SITE BENIGN. CÁRDENAS CATHETER PATENT AND DRAINING URINE VIA GRAVITY. BED IS IN LOW POSITION WITH THE CALL LIGHT WITHIN EASY REACH.
--- NOTE | 2021-03-19 15:15 | NUR ---
DAUGHTER AT BEDSIDE. PT DENIES PAIN. A/O, VSS. NO CHANGES FROM MY PREVIOUS ASSESSMENT THIS MORNING. CALL PLACED AT 1515 TO LYNDATRAY AND GAVE REPORT TO NURSE CHANA WHO STATED PT WILL BE STAYING IN ROOM 511 D
--- NOTE | 2021-03-19 15:59 | NUR ---
1545-PT DISCHARGE TO [facility], NO REPORTED PAIN. A/O. NO CHANGES FROM BEGINNING OF MY SHIFT. IV REMOVED. REPORT GIVEN TO CHANA. MED FAX OVER TO FACILITY
== END 2021-03-19 16:43 | DRG 177 ==
LOC: ER 11:25 → MEDS 18:14
PROVIDERS: Emergency Medicine; Family Medicine; Internal Medicine; Student in an Organized Health Care Education/Training Program; ADMIT Internal Medicine
DX: J69.0 Pneumonitis due to inhalation of food and vomit (principal); U07.1 COVID-19; G92.8 Other toxic encephalopathy; N39.0 Urinary tract infection, site not specified; D61.818 Other pancytopenia; Z66 Do not resuscitate; R63.0 Anorexia; B96.20 Unspecified Escherichia coli [E. coli] as the cause of diseases classified elsewhere; B96.5 Pseudomonas (aeruginosa) (mallei) (pseudomallei) as the cause of diseases classified elsewhere; Z68.27 Body mass index [BMI] 27.0-27.9, adult; N18.30 Chronic kidney disease, stage 3 unspecified; M06.9 Rheumatoid arthritis, unspecified; M16.0 Bilateral primary osteoarthritis of hip; I12.9 Hypertensive chronic kidney disease with stage 1 through stage 4 chronic kidney disease, or unspecified chronic kidney disease; F41.8 Other specified anxiety disorders; L40.50 Arthropathic psoriasis, unspecified; Z79.899 Other long term (current) drug therapy; Z98.890 Other specified postprocedural states; Z90.49 Acquired absence of other specified parts of digestive tract; Z87.891 Personal history of nicotine dependence
CPT/HCPCS: 36415; 51702; 71045; 73522; 80048; 80053; 81001; 83735; 84100; 84145; 85007; 85025; 85027; 87040; 87077; 87086; 87186; 92526; 92610; 94760; 94762; 96365; 97110; 97110-CQ; 97161; 97530; 97530-CQ; 99285-25; A9270; J0696; J0713; J1650; J1956; J3010; J7030; J7121; Q0167

== ENCOUNTER → 2021-03-28 | Outpatient (CLI) | payer MEDICARE, BC ==
[2021-03-28 13:41] LABS: Albumin, Blood 1.6 g/dL (3.4-5.0); Albumin/Globulin Ratio 0.4 (0.8-1.8); Bilirubin, Total 0.6 mg/dL (0.1-1.0); Bun/Creatinine Ratio 15.5 (12.0-20.0); Creatinine, Blood 1.03 mg/dL (0.40-1.00); Globulin, Blood 3.6 g/dL (2.2-4.0); Potassium, Blood 4.3 mmol/L (3.5-5.5); Total Protein, Blood 5.2 g/dL (6.4-8.2)
== END | disposition home or self-care (01) ==
LOC: EDSTATUS 11:12 → LAB RH 11:59
PROVIDERS: Internal Medicine
DX: A41.9 Sepsis, unspecified organism (principal)
CPT/HCPCS: 80053

== ENCOUNTER → 2021-03-29 | Outpatient (CLI) | payer MEDICARE, BC ==
[2021-03-29 12:29] LABS: Hematocrit 29.8 % (33.0-51.0); Hemoglobin 9.5 g/dL (11.5-16.0); Mean Corpuscular HGB 33.8 pg (26.0-34.0); Mean Corpuscular HGB Conc 31.9 g/dL (31.5-36.5); Mean Corpuscular Volume 106 fL (80-100); Mean Platelet Volume 10.5 fL (9.1-12.4); Platelet Count 144 K/mm3 (150-400); RDW Coefficient Variation 15.4 % (11.7-14.2); RDW Standard Deviation 58.6 fL (35.1-46.3); Red Blood Cell Count 2.81 M/mm3 (3.80-5.20); White Blood Cell Count 4.43 K/mm3 (4.00-11.30)
== END ==
LOC: EDSTATUS 11:13 → LAB RH 11:39
PROVIDERS: Internal Medicine
DX: R79.9 Abnormal finding of blood chemistry, unspecified (principal)
CPT/HCPCS: 85027